=== PATIENT | female | born 1975 | race Two or more races ===

== ENCOUNTER → 2017-05-24 | Day surgery (SDC) | payer BC ==
[~2017-05-24] MED LIST: HYDROmorphone 2 MG/ML VIAL IV; IV RINGERS,LACTATED 1000ML 1,000 ML IV; LIDOCAINE 1% PF 2 ML VIAL. ID; LIDOCAINE 2% 100 MG/5 ML SYRINGE.; MIDAZOLAM HCL/PF 2 MG/2 ML VIAL. IV; MORPHINE SULFATE 4 MG/ML DISP.SYRIN. IV; ONDANSETRON PF 4 MG/2 ML VIAL. IV; PROCHLORPERAZINE 10 MG/2 ML VIAL. IV; PROPOFOL 60 ML IV; fentaNYL PF VIAL 100 MCG/2 ML VIAL IV
[2017-05-24] MEDS: IV RINGERS,LACTATED 1000ML 1,000 ML IV (09:00)
[2017-05-24 09:01] LABS: NEG OBC UR NEG; POS OBC UR POS; U PREG PATIENT NEGATIVE (NEG)
== END | disposition home or self-care (01) ==
LOC: ENDOS 08:26
DX: K64.0 First degree hemorrhoids (principal); K62.5 Hemorrhage of anus and rectum; K21.0 Gastro-esophageal reflux disease with esophagitis; K29.50 Unspecified chronic gastritis without bleeding; Z88.0 Allergy status to penicillin
CPT/HCPCS: 43239; 81025; 88305; 88342; J2704